=== PATIENT | female | born 1965 | race Caucasian/White ===

== ENCOUNTER 2020-05-26 20:04 | Emergency (ER) | payer MEDICAID, SELFPAY ==
[2020-05-26 20:12] VITALS: BP 107/77; BP 82/38; PULSE 78; PULSE 92; RESP 12; O2SAT 94; BMI 32.8
--- NOTE | 2020-05-26 20:24 | ECG_ITS ---
Test Reason : SEIZURE Blood Pressure : / mmHG Vent. Rate : 073 BPM Atrial Rate : 073 BPM P-R Int : 154 ms QRS Dur : 088 ms QT Int : 428 ms P-R-T Axes : 049 059 037 degrees QTc Int : 471 ms Normal sinus rhythm Low voltage QRS Borderline ECG When compared with ECG of 01-JUL-2018 10:39, No significant change was found Referred By: Generic ED Physician Electronically Signed By:Jourdan Reynoso
[2020-05-26 20:40] VITALS: BP 102/67
--- NOTE | 2020-05-26 20:42 | PC.NURSE ---
HPI: Pt arrives by action ems, after having a witnessed seziure like acitivity lasting approximately 30 seconds. Per ems, patient appeared to have no urinary incontinece. patient was able to answer basic questions. Upon arrival. patient appears to be be a and o x 2. Pt is responsive to voice. GCS of 14. During triage assessment, patient was found to be hypotensive, IV fluids (1L NS)began. BGL 181. EKG taken. patient became bradypneic rr of 6. 4mg narcan given. rr appeared to improve, patient placed on capnography. Labs drawn. Pt repositioned for better airway access. Pt appeares to have improved mentation at 2030- reports taking 3 tyenol. Awaiting provider evaluation.
[2020-05-26 20:43] LABS: Eosinophils Percent Auto 0.4 % (0-4); Hematocrit 37.5 % (37-47); Hemoglobin 12.6 g/dl (12.0-16.0); Imm Gran Abs Auto 0.02 X10*3/uL (0.00-0.03); Imm Gran Pct Auto 0.3 % (0.0-0.4); Lymphocytes Absolute Auto 2.8 X10*3/uL (1.2-4.9); Lymphocytes Percent Auto 40.3 % (20-40); Mean Corpuscular HGB Conc 33.6 g/dl (31.0-35.0); Mean Corpuscular Hemoglobin 31.7 pg (27.0-33.0); Mean Corpuscular Volume 94.5 fL (80-98); Mean Platelet Volume 9.6 fL (9.4-12.3); Monocytes Absolute Auto 0.1 X10*3/uL (0.1-1.2); Monocytes Percent Auto 1.7 % (2-11); Neutrophils Percent Auto 57.3 % (45-73); Platelet Count 306 X10*3/uL (160-400); Red Blood Count 3.97 X10*6/uL (4.20-5.50); Red Cell Distribution Width 11.9 % (11.0-16.0)
[2020-05-26 20:45] LABS: MANUAL DIFF FLAG NO
--- NOTE | 2020-05-26 21:05 | PC.NURSE ---
Daughter Anita [phone] Permission given to give updates. reports weightloss surgery 2 years ago, and hx of neck surgery.
[2020-05-26 21:09] LABS: Ethanol < 10 mg/dL
[2020-05-26 21:10] LABS: Anion Gap 13 (12-20); Blood Urea Nitrogen 13 mg/dL (9-16); Calcium 8.6 mg/dL (8.4-10.2); Carbon Dioxide 23 mmol/L (22-29); Chloride 107 mmol/L (96-108); Estimated Glomerular Filt Rate > 60; Glucose Random 185 mg/dL (60-115); Potassium 3.6 mmol/l (3.3-5.1); Sodium 139 mmol/L (135-145)
[2020-05-26 21:16] LABS: Troponin-I High Sensitivity < 3.5 ng/L (<3.5-17.0)
[2020-05-26 21:19] LABS: Acetaminophen LAB < 1 mcg/mL (<30); Salicylate < 5.0 mg/dL (15-30)
--- NOTE | 2020-05-26 21:28 | ED.SYNCOPE ---
HPI - Syncope General Chief Complaint: General Medical Stated Complaint: seizures Time Seen by Provider: 05/26/20 20:27 Source: patient Mode of arrival: EMS Limitations: no limitations History of Present Illness HPI narrative: Patient has history of chronic neck pain on Tylenol gabapentin and amitriptyline for pain today while at work she had right flank pain felt dizzy lightheaded slumped down and then passed out co-worker noticed patient had slight seizure-like activity no incontinence no tongue bite, patient was confused after the episode, she feels better patient denies any urinary complaints no fever no chills no headache had any seizures in the past. No family history of seizures or brain tumor patient denied any chest pain or cardiac arrhythmias never had syncope episode, denies any substance abuse patient was drowsy , when she came here was given Narcan patient denies any use of narcotics Related Data Previous Rx's Medication Instructions Recorded ciprofloxacin HCl [Cipro] 500 mg PO BID #10 tab 05/26/20 Allergies Allergy/AdvReac Type Severity Reaction Status Date / Time aspirin [ASPIRIN] Allergy Severe DIFFICULTY Unverified 02/24/20 16:12 BREATHING ibuprofen [IBUPROFEN] Allergy Severe DIFFICULTY Unverified 02/24/20 16:12 BREATHING aspirin Allergy Unknown shortness Uncoded 08/25/18 00:00 of breath ibuprofen Allergy Unknown shortness Uncoded 08/25/18 00:00 of breath Review of Systems Review of Systems: REVIEW OF SYSTEMS: Pertinent positives and negatives are stated above in the history. GEN: no fevers, chills, fatigue HEENT: no nasal congestion, sore throat, ear pain NEURO: no headache, dizziness, focal weakness PULM: no cough, shortness of breath CV: no chest pain, palpitations, LE edema ABD: no abdominal pain, nausea, vomiting, diarrhea : no dysuria, urgency, frequency SKIN: no rash ROS otherwise negative x 10 PMFSH Social History Social History Advance Directives: No Advance Directives Information Provided: Yes Physical Exam Vital Signs: Vital Signs: Last Vital Signs Temp 98.7 F 05/26/20 22:03 Pulse 68 05/27/20 00:19 Resp 18 05/27/20 00:19 BP 113/54 L 05/27/20 00:19 Pulse Ox 94 05/26/20 22:03 Body Mass Index 32.8 Appearance: Alert. Oriented X3. No acute distress. Eyes: Pupils equal, round and reactive to light. ENT: Pharynx normal. No tongue bite Neck: Normal inspection. Neck supple. CVS: Normal heart rate and rhythm. Pulses normal. Respiratory: No respiratory distress. Breath sounds normal. Abdomen: Soft and nontender. No hepatosplenomegaly no rebound tenderness or guarding slight tenderness at right CVA area Skin: Skin warm and dry. Normal skin color. Normal skin turgor. Extremities: No lower extremity edema. Good range of movement Neuro: Oriented X 3. No motor deficit. No sensory deficit. MDM - Syncope MDM Narrative Medical decision making narrative: Patient with possible seizure likely from vasovagal syncope. Labs are stable urine shows UTI will discharge her home on Levaquin advised to follow-up with neurology Differential Diagnosis Differential diagnosis: Likely vasovagal syncope Lab Data Attestation: I reviewed the patient's lab results. Result diagrams: 05/26/20 20:33 05/26/20 20:34 Labs: Lab Results 05/26/20 05/26/20 05/26/20 Range/Units 20:33 20:34 20:34 WBC 7.0 (4.8-10.8) X10*3/uL RBC 3.97 L (4.20-5.50) X10*6/uL Hgb 12.6 (12.0-16.0) g/dl Hct 37.5 (37-47) % MCV 94.5 (80-98) fL MCH 31.7 (27.0-33.0) pg MCHC 33.6 (31.0-35.0) g/dl RDW 11.9 (11.0-16.0) % Plt Count 306 (160-400) X10*3/uL MPV 9.6 (9.4-12.3) fL Immature Gran % (Auto) 0.3 (0.0-0.4) % Neut % (Auto) 57.3 (45-73) % Lymph % (Auto) 40.3 H (20-40) % Frontier % (Auto) 1.7 L (2-11) % Eos % (Auto) 0.4 (0-4) % Baso % (Auto) 0.0 (0-2) % Lymph # (Auto) 2.8 (1.2-4.9) X10*3/uL Frontier # (Auto) 0.1 (0.1-1.2) X10*3/uL Eos # (Auto) 0.0 (0.0-0.4) X10*3/uL Baso # (Auto) 0.0 (0.0-0.2) X10*3/uL Abs Immat Gran (auto) 0.02 (0.00-0.03) X10*3/uL Absolute Neuts (auto) 4.0 (2.0-8.3) X10*3/uL Absolute Nucleated RBC 0.000 (0.0-0.012) X10*3/uL Nucleated RBC % (auto) 0.0 (0.0-0.2) /100WBC Hold Blue Top SEE NOTE Sodium 139 (135-145) mmol/L Potassium 3.6 (3.3-5.1) mmol/l Chloride 107 (96-108) mmol/L Carbon Dioxide 23 (22-29) mmol/L Anion Gap 13 (12-20) BUN 13 (9-16) mg/dL Creatinine 0.76 (0.5-1.4) mg/dL Estim Creat Clear Calc 88.0 Estimated GFR > 60 Random Glucose 185 H (60-115) mg/dL Lactic Acid (0.5-2.0) mmol/L Calcium 8.6 (8.4-10.2) mg/dL Troponin I High Sens (<3.5-17.0) ng/L Urine Color Urine Appearance Urine pH (5.0-8.0) Ur Specific [place] (1.005-1.025) Urine Protein (NEG-TRACE) MG/DL Urine Glucose (UA) (NEG) MG/DL Urine Ketones (NEG) MG/DL Urine Blood (NEG) Urine Nitrite (NEG) Ur Leukocyte Esterase (NEG) Urine RBC (0) /HPF Urine WBC (0-4) /HPF Ur Squamous Epith Cells /LPF Uric Acid Crystals /LPF Urine Bacteria /LPF Hyaline Casts /LPF Urine Mucus /LPF Salicylates < 5.0 L (15-30) mg/dL Urine Opiates Screen (Not Detect) Acetaminophen < 1 (<30) mcg/mL Ur Barbiturates Screen (Not Detect) Ur Phencyclidine Scrn (Not Detect) Ur Amphetamines Screen (Not Detect) U Benzodiazepines Scrn (Not Detect) Urine Cocaine Screen (Not Detect) U Marijuana (THC) Screen (Not Detect) Ethyl Alcohol mg/dL 05/26/20 05/26/20 05/26/20 Range/Units 20:34 20:34 20:34 WBC (4.8-10.8) X10*3/uL RBC (4.20-5.50) X10*6/uL Hgb (12.0-16.0) g/dl Hct (37-47) % MCV (80-98) fL MCH (27.0-33.0) pg MCHC (31.0-35.0) g/dl RDW (11.0-16.0) % Plt Count (160-400) X10*3/uL MPV (9.4-12.3) fL Immature Gran % (Auto) (0.0-0.4) % Neut % (Auto) (45-73) % Lymph % (Auto) (20-40) % Frontier % (Auto) (2-11) % Eos % (Auto) (0-4) % Baso % (Auto) (0-2) % Lymph # (Auto) (1.2-4.9) X10*3/uL Frontier # (Auto) (0.1-1.2) X10*3/uL Eos # (Auto) (0.0-0.4) X10*3/uL Baso # (Auto) (0.0-0.2) X10*3/uL Abs Immat Gran (auto) (0.00-0.03) X10*3/uL Absolute Neuts (auto) (2.0-8.3) X10*3/uL Absolute Nucleated RBC (0.0-0.012) X10*3/uL Nucleated RBC % (auto) (0.0-0.2) /100WBC Hold Blue Top Sodium (135-145) mmol/L Potassium (3.3-5.1) mmol/l Chloride (96-108) mmol/L Carbon Dioxide (22-29) mmol/L Anion Gap (12-20) BUN (9-16) mg/dL Creatinine (0.5-1.4) mg/dL Estim Creat Clear Calc Estimated GFR Random Glucose (60-115) mg/dL Lactic Acid 2.0 (0.5-2.0) mmol/L Calcium (8.4-10.2) mg/dL Troponin I High Sens < 3.5 (<3.5-17.0) ng/L Urine Color Urine Appearance Urine pH (5.0-8.0) Ur Specific [place] (1.005-1.025) Urine Protein (NEG-TRACE) MG/DL Urine Glucose (UA) (NEG) MG/DL Urine Ketones (NEG) MG/DL Urine Blood (NEG) Urine Nitrite (NEG) Ur Leukocyte Esterase (NEG) Urine RBC (0) /HPF Urine WBC (0-4) /HPF Ur Squamous Epith Cells /LPF Uric Acid Crystals /LPF Urine Bacteria /LPF Hyaline Casts /LPF Urine Mucus /LPF Salicylates (15-30) mg/dL Urine Opiates Screen (Not Detect) Acetaminophen (<30) mcg/mL Ur Barbiturates Screen (Not Detect) Ur Phencyclidine Scrn (Not Detect) Ur Amphetamines Screen (Not Detect) U Benzodiazepines Scrn (Not Detect) Urine Cocaine Screen (Not Detect) U Marijuana (THC) Screen (Not Detect) Ethyl Alcohol < 10 mg/dL 05/26/20 05/26/20 Range/Units 21:30 21:39 WBC (4.8-10.8) X10*3/uL RBC (4.20-5.50) X10*6/uL Hgb (12.0-16.0) g/dl Hct (37-47) % MCV (80-98) fL MCH (27.0-33.0) pg MCHC (31.0-35.0) g/dl RDW (11.0-16.0) % Plt Count (160-400) X10*3/uL MPV (9.4-12.3) fL Immature Gran % (Auto) (0.0-0.4) % Neut % (Auto) (45-73) % Lymph % (Auto) (20-40) % Frontier % (Auto) (2-11) % Eos % (Auto) (0-4) % Baso % (Auto) (0-2) % Lymph # (Auto) (1.2-4.9) X10*3/uL Frontier # (Auto) (0.1-1.2) X10*3/uL Eos # (Auto) (0.0-0.4) X10*3/uL Baso # (Auto) (0.0-0.2) X10*3/uL Abs Immat Gran (auto) (0.00-0.03) X10*3/uL Absolute Neuts (auto) (2.0-8.3) X10*3/uL Absolute Nucleated RBC (0.0-0.012) X10*3/uL Nucleated RBC % (auto) (0.0-0.2) /100WBC Hold Blue Top Sodium (135-145) mmol/L Potassium (3.3-5.1) mmol/l Chloride (96-108) mmol/L Carbon Dioxide (22-29) mmol/L Anion Gap (12-20) BUN (9-16) mg/dL Creatinine (0.5-1.4) mg/dL Estim Creat Clear Calc Estimated GFR Random Glucose (60-115) mg/dL Lactic Acid (0.5-2.0) mmol/L Calcium (8.4-10.2) mg/dL Troponin I High Sens (<3.5-17.0) ng/L Urine Color DARK YELLOW Urine Appearance HAZY Urine pH 5.0 (5.0-8.0) Ur Specific [place] >= 1.030 H (1.005-1.025) Urine Protein TRACE (NEG-TRACE) MG/DL Urine Glucose (UA) NEG (NEG) MG/DL Urine Ketones NEG (NEG) MG/DL Urine Blood NEG (NEG) Urine Nitrite NEG (NEG) Ur Leukocyte Esterase 1+ H (NEG) Urine RBC 0-2 (0) /HPF Urine WBC 15-29 H (0-4) /HPF Ur Squamous Epith Cells 1+ /LPF Uric Acid Crystals TRACE /LPF Urine Bacteria NONE /LPF Hyaline Casts 10-14 /LPF Urine Mucus 3+ /LPF Salicylates (15-30) mg/dL Urine Opiates Screen POSITIVE H (Not Detect) Acetaminophen (<30) mcg/mL Ur Barbiturates Screen Not Detected (Not Detect) Ur Phencyclidine Scrn Not Detected (Not Detect) Ur Amphetamines Screen Not Detected (Not Detect) U Benzodiazepines Scrn Not Detected (Not Detect) Urine Cocaine Screen Not Detected (Not Detect) U Marijuana (THC) Screen Not Detected (Not Detect) Ethyl Alcohol mg/dL ECG Data Attestation: I personally reviewed and interpreted this ECG as follows: Interpretation: Normal sinus rhythm normal axis heart rate 73 normal intervals no acute ST T wave changes impression normal EKG Discharge Plan Discharge Clinical Impression: Vasovagal syncope UTI (urinary tract infection) Qualifiers: Urinary tract infection type: acute cystitis Hematuria presence: without hematuria Qualified Code(s): N30.00 - Acute cystitis without hematuria Patient Disposition: Home, Self-Care Instructions: Urinary Tract Infection in Women (ED), Syncope (ED) Additional Instructions: Drink plenty of fluids take antibiotic as advised. If you possibly had syncope and small atypical seizure Follow with neurologist/PCP for further evaluation. Report to the ER if recurrent seizures Prescriptions: New ciprofloxacin HCl [Cipro] 500 mg tablet 500 mg PO BID Qty: 10 RF: 0 Referrals: Michele Ward MD [Physician] - 1 week Interventions: ED Discharge Assessment Last Done: 05/27/20 00:28 Discharge Date/Time: 05/27/20 00:29
[2020-05-26 21:51] LABS: Glucose Urine UA NEG (NEG); Leukocyte Esterase Urine 1+ (NEG); Nitrite Urine NEG (NEG); Specific Gravity - Urine >= 1.030 (1.005-1.025); Urine Blood NEG (NEG); Urine Ketones NEG (NEG); Urine Protein TRACE MG/DL (NEG-TRACE)
[2020-05-26 21:53] LABS: Appearance Urine HAZY; Color Urine DARK YELLOW
[2020-05-26 22:03] VITALS: BP 105/61; PULSE 66; RESP 12; TEMP 37.1; O2SAT 94
[2020-05-26 22:10] VITALS: BP 107/61
[2020-05-26 22:19] LABS: RBC Urine 0-2 /HPF (0)
[2020-05-26 22:20] LABS: Mucus Urine 3+ /LPF; Squamous Epithelial Cell Urine 1+ /LPF; Uric Acid Crystals Urine TRACE /LPF
[2020-05-27] MEDS: levoFLOXacin 500 MG TABLET PO (00:17)
[2020-05-27 00:19] VITALS: BP 113/54; PULSE 68; RESP 18
[2020-05-27 00:48] LABS: Amphetamine Screen Urine Not Detected (Not Detect); Barbiturates, Urine Not Detected (Not Detect); Benzodiazepines Screen Urine Not Detected (Not Detect); Cannabinoid Screen Urine Not Detected (Not Detect); Cocaine Screen Urine Not Detected (Not Detect); Opiate Screen Urine POSITIVE (Not Detect); Phencyclidine Screen Urine Not Detected (Not Detect)
[2020-05-29 08:23] LABS: Glucose, Whole Blood 181 mg/dL (60-115)
== END 2020-05-27 00:29 | disposition home or self-care (01) ==
PROVIDERS: Nurse Practitioner Primary Care; Emergency Provider Internal Medicine
DX: R55 Syncope and collapse (principal); N30.00 Acute cystitis without hematuria
CPT/HCPCS: 36415; 80048; 80307; 80320; 81001; 82947; 83605; 84484; 85025; 87086; 93005; 99284; G0480

== ENCOUNTER 2021-05-26 18:08 | Emergency (ER) | payer MEDICAID, SELFPAY ==
--- NOTE | ~2021-05-26 | XR_ITS ---
EXAMINATION: X-RAY RIGHT HAND/WRIST CLINICAL INFORMATION: Pain/swelling. COMPARISON: No similar priors. TECHNIQUE: 4 views of the right hand/wrist were obtained. FINDINGS: Soft tissue edema without unexpected foreign bodies or subcutaneous air. No acute fractures or malalignment. Carpal rows and scapholunate interval are within normal limits. 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 XR/XR hand wrist RT IMPRESSION: No acute fractures or malalignment.
[2021-05-26 18:42] VITALS: BP 110/67; PULSE 85; RESP 18; TEMP 37.1; O2SAT 94; BMI 37.8
--- NOTE | 2021-05-26 23:59 | ED.FALL ---
HPI - Fall General Chief Complaint: Fall Stated Complaint: fall r arm inj Time Seen by Provider: 05/26/21 21:41 Source: patient Mode of arrival: ambulatory Limitations: no limitations History of Present Illness HPI Narrative: 55-year-old right-handed female presents for right wrist injury. Patient was in bed, and reach for her phone, and fell out of bed with all of her weight on her right wrist. No numbness or tingling. Patient has tenderness and swelling around her right wrist. Related Data Previous Rx's Medication Instructions Recorded ciprofloxacin HCl 500 mg tablet 500 mg PO BID #10 tab 05/26/20 (Cipro) oxycodone 5 mg capsule 5 mg PO BID PRN #9 cap 05/26/21 Allergies Allergy/AdvReac Type Severity Reaction Status Date / Time aspirin [ASPIRIN] Allergy Severe DIFFICULTY Unverified 05/26/21 18:46 BREATHING ibuprofen [IBUPROFEN] Allergy Severe DIFFICULTY Unverified 05/26/21 18:46 BREATHING aspirin Allergy Unknown shortness Uncoded 05/26/21 18:46 of breath ibuprofen Allergy Unknown shortness Uncoded 05/26/21 18:46 of breath Review of Systems Constitutional: Constitutional: Denies body ache(s), Denies chills, Denies fatigue, Denies fever(s), Denies headache(s), Denies malaise and Denies weakness Eyes: Eyes: Denies diplopia ENT: Denies vertigo, Denies dizziness, Denies otalgia, Denies headache(s), Denies mouth pain, Denies post nasal drip, Denies sinus pain, Denies sinus pressure, Denies sore throat and Denies throat swelling Cardiovascular: Cardiovascular: Denies chest pain, Denies syncope, Denies leg edema, Denies lightheadedness, Denies Loss of Consciousness, Denies palpitations and Denies dyspnea Respiratory: Respiratory: Denies chest congestion, Denies cough and Denies dyspnea Gastrointestinal: Gastrointestinal: Reports abdominal pain, Denies hematochezia, Denies constipation, Denies diarrhea and Denies vomiting Musculoskeletal: Musculoskeletal: Reports arthralgias, Reports joint swelling, Reports limited range of motion, Denies numbness and Denies tingling Neurologic: Denies confusion, Denies vertigo, Denies dizziness, Denies syncope, Denies headache(s), Denies numbness, Denies tingling and Denies weakness Psychiatric: Psychiatric: Denies anxiety, Denies confusion and Denies depression Endocrine: Endocrine: Denies fatigue and Denies palpitations Allergic/Immunologic: Allergic/Immunologic: Denies throat swelling PMFSH Social History Social History Advance Directives: Yes Advance Directives Information Provided: Yes Advance Directives on File: No Physical Exam Vital Signs: Vital Signs: Last Vital Signs Temp 98.8 F 05/26/21 18:42 Pulse 85 05/26/21 18:42 Resp 18 05/26/21 18:42 BP 110/67 05/26/21 18:42 Pulse Ox 94 05/26/21 18:42 BMI result Body Mass Index 37.8 Const: General: No confusion Nutritional Appearance: well nourished Orientation/consciousness: No confusion Limitations: no limitations HENMT: Head: Yes normal to inspection, Yes normocephalic and Yes atraumatic Ears: hearing grossly normal bilaterally, external ears normal, TM's normal bilaterally and EAC's normal General nose exam: Normal external nose present Face and sinus: Yes normal facial exam and Yes sinuses nontender Mouth: Normal oral and palatal mucosa present Throat: Yes posterior oropharynx normal Eyes: Conjunctivae: conjunctivae normal Pupils: Equal, round and reactive pupils present EOM: EOMs intact bilaterally Neck: Neck: Yes full ROM, Yes no lymphadenopathy and Yes supple Resp: Effort & Inspection: normal respiratory effort and able to speak in complete sentences Auscultation: clear to auscultation bilaterally, no crackles, no rales, no rhonchi and no wheezes Cardio: Rate: regular rate Rhythm: regular rhythm Heart sounds: S1 normal heart sound present and S2 normal heart sound present GI: Inspection: Yes normal to inspection Palpation (GI): Soft to palpation, nontender, no guarding and not rigid Percussion: Yes normal to percussion Auscultation: normal bowel sounds Skin: General skin exam: no rashes or lesions noted Neuro: General: No confusion Cranial nerves: Yes Equal, round and reactive pupils present Extrem: Right upper extremity: full ROM, normal capillary refill and wrist Details: tenderness Location: of the dorsal wrist and of the volar wrist; Negative for not of the anatomic snuffbox and swelling Location: of the dorsal wrist and of the volar wrist; Negative for no unusual warmth, no abrasions, no lacerations, no ecchymosis and no crepitus Psych: Appearance: grossly normal Affect: normal affect Attitude: cooperative Thought process: Normal thought process present Course Course Course Narrative: 55-year-old female presents for right wrist injury. 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 X-rays negative for acute fracture. Patient is swollen and tender around entire wrist. Wrist sprain. Applied volar splint, follow-up with Orthopedics, counseled rice, gave Tylenol here. Patient has an allergy to ibuprofen where she syncopized Gloria, prescribe short course of oxycodone. Patient counseled to follow-up with orthopedics Discharge Plan Discharge Clinical Impression: Sprain of wrist, right Qualifiers: Encounter type: initial encounter Qualified Code(s): S63.501A - Unspecified sprain of right wrist, initial encounter Patient Disposition: Home, Self-Care Instructions: Wrist Injury (ED), R.I.C.E. Treatment (ED) Additional Instructions: Please call Orthopedics at [phone] I have referred you, so they should be calling them as well. Please keep the wrist splint on until you are seen by them. Please rest, ice, and elevate your right arm. Please take Tylenol. Take oxycodone as needed. Prescriptions: New oxycodone 5 mg capsule 5 mg PO BID PRN (Reason: pain) Qty: 9 RF: 0 No Action ciprofloxacin HCl [Cipro] 500 mg tablet 500 mg PO BID Qty: 10 RF: 0 Referrals: Gladis Shea PA [Emergency Midlevel Provider] - 2 days Luiz Yi MD [Physician] - 2 days (right wrist sprain) Stand Alone Forms: Work/School Release Interventions: ED Discharge Assessment Last Done: 05/26/21 23:14 Discharge Date/Time: 05/26/21 23:17
== END 2021-05-26 23:17 | disposition home or self-care (01) ==
PROVIDERS: Emergency Provider Emergency Medicine; PCP Family Medicine
DX: S63.501A Unspecified sprain of right wrist, initial encounter (principal); W06.XXXA Fall from bed, initial encounter; Y93.9 Activity, unspecified; Y92.9 Unspecified place or not applicable; Y99.9 Unspecified external cause status
CPT/HCPCS: 73110; 73130; 99283

== ENCOUNTER 2021-06-25 07:17 | Outpatient (REF) | payer MEDICAID, SELFPAY ==
--- NOTE | ~2021-06-25 | XR_ITS ---
EXAMINATION: RIGHT WRIST WITH SCAPHOID. CLINICAL INFORMATION: Pain in the right hand. COMPARISON: None TECHNIQUE: 4 views. FINDINGS: There is no visible acute fracture, dislocation or subluxation. The radioulnar carpal, intercarpal and carpometacarpal alignment is normal. The soft tissues are normal. XR/XR wrist RT w scaphoid IMPRESSION: Unremarkable right wrist exam.
== END 2021-06-25 07:18 | disposition home or self-care (01) ==
LOC: HO.HOSX 07:17
PROVIDERS: Visit Provider Physician Assistant
DX: S63.501A Unspecified sprain of right wrist, initial encounter (principal)
CPT/HCPCS: 73110; 99202

== ENCOUNTER 2021-07-23 08:00 | Outpatient (RCR) | payer MEDICAID, SELFPAY ==
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
--- NOTE | 2021-08-06 15:50 | MHC.OT.DC ---
[address] [phone] F: [phone] Occupational Therapy Discharge Note Provider: Abimbola Rojo Diagnosis: SPRAIN OF THE RIGHT WRIST Date of Evaluation: 07/02/21 Date of Discharge: 08/06/21 Treatments to Date: 7 Cancellations to Date: 1 No Shows to Date: 1 Discharge Status: Improved Function Independent with HEP Patient Elected to Stop Discharge Summary: MS BARROSO HAS BEEN PROGRESSING WITH HER OT GOALS. SHE REPORTED LOW PAIN, HER STRENGTH WAS IMPROVING AND SHE WAS GRADUALLY INTRODUCING LIFTING TASKS FOR IADLs OF ABOUT 10 POUNDS. Pt HAS HAD A TWO WEEK LAPSE IN OT TREATMENT SESSIONS AND WILL BE D/C'D FROM OT SERVICES. AT HER LAST APPOINTMENT, IT WAS DISCUSSED THAT SHE WOULD BEGIN TO WEAN TO A HOME MANAGEMENT PROGRAM IN THE NEXT 1-2 VISITS. NO FURTHER OT WARRANTED AT THIS TIME AND SUSPECT Pt WILL CONTINUE TO IMPROVE STRENGTH WITH FOLLOW THROUGH OF HER HEP AND FUNCTIONAL TASKS. Electronically Signed By: DANDRE VELARDE OTR/L Reviewed/agree with student documentation: N/A Therapist: Please Sign and return to therapist, thank you for your referral.
== END 2021-08-06 15:50 | disposition home or self-care (01) ==
LOC: HO.OT 08:00
PROVIDERS: PCP Family Medicine; Visit Provider Physician Assistant
DX: S63.501D Unspecified sprain of right wrist, subsequent encounter (principal)
CPT/HCPCS: 97035; 97110; 97140; 97166

== ENCOUNTER → 2021-07-31 08:11 | Outpatient (BNVA) | payer MEDICAID, SELFPAY | PROVIDERS: PCP Family Medicine; Visit Provider Physician Assistant | DX: S63.501D Unspecified sprain of right wrist, subsequent encounter (principal) | CPT/HCPCS: 99212 ==